=== PATIENT | female | born 1940 | race Caucasian/White ===

== ENCOUNTER 2018-03-09 10:39 | Emergency (ER) | payer MEDICARE, OTHER ==
[~2018-03-09] VITALS: Ht 160 cm; Wt 67.0 kg
[~2018-03-09 10:39] MED LIST: ALBU8.5H8 IH; ASPI-611 PO; ATOR40TA71 PO; CHOL100046 PO; CYAN-19 PO; FENO54TA PO; GLUC-133 PO; MESA0.37 PO; METO25TA6 PO; OMEG-166 PO
[2018-03-09 13:56] VITALS: BP 196/82
== END 2018-03-09 14:34 | disposition left against medical advice (07) ==
LOC: ER 10:40
DX: R06.00 Dyspnea, unspecified (principal); Z53.21 Procedure and treatment not carried out due to patient leaving prior to being seen by health care provider; V49.9XXA Car occupant (driver) (passenger) injured in unspecified traffic accident, initial encounter; Y93.89 Activity, other specified; Y92.488 Other paved roadways as the place of occurrence of the external cause; Y99.8 Other external cause status

== ENCOUNTER 2018-08-21 08:34 | Emergency (ER) | payer MEDICARE, OTHER ==
[~2018-08-21] VITALS: Ht 160 cm; Wt 69.0 kg
[2018-08-21] MEDS ORDERED: TRAM50TA2 PO (08:50)
[2018-08-21] MEDS ORDERED: PENI500T2 PO (08:50)
[2018-08-21 09:12] VITALS: BP 103/52
== END 2018-08-21 09:14 | disposition home or self-care (01) ==
LOC: ER 08:34
DX: K08.89 Other specified disorders of teeth and supporting structures (principal); R68.84 Jaw pain; I10 Essential (primary) hypertension; Z91.040 Latex allergy status
CPT/HCPCS: 99283

== ENCOUNTER 2020-10-29 07:31 | Outpatient (CLI) | payer MEDICARE, OTHER ==
[~2020-10-29] VITALS: Ht 160 cm; Wt 61.2 kg
[2020-10-29] VITALS (10 sets, daily range): BP systolic 113–159; BP diastolic 53–93
[~2020-10-29 07:31] MED LIST changes: +ALBU8.5H17 IH; -ALBU8.5H8 IH; -CYAN-19 PO; +CYAN-51 PO; +LOP25T PO; -METO25TA6 PO
[2020-10-29] MEDS ORDERED: normal saline 500ml IV soln 500 ML IV ONE (08:40)
[2020-10-29] MEDS ORDERED: aminophylline 250mg/10ml inj. IV PRN (08:40)
[2020-10-29] MEDS ORDERED: regadenoson 0.4mg/5ml syringe IV ONE (08:40)
[2020-10-29] MEDS ORDERED: nitroGLYCERIN 0.4mg SUBLingual tab SL PRN (08:40)
== END 2020-10-29 23:59 | disposition home or self-care (01) ==
LOC: RAD 07:31
PROVIDERS: ATTEND Internal Medicine Cardiovascular Disease
DX: I25.10 Atherosclerotic heart disease of native coronary artery without angina pectoris (principal)
CPT/HCPCS: 78452; 93017; A9500; J0280; J2785; J7040